=== PATIENT | female | born 1985 | race African-American/Black ===

== ENCOUNTER → 2020-05-25 | Outpatient (CLI) | payer OTHER, MEDICAID ==
[~2020-05-25] MED LIST: ACET-2708 PO; CEFAZOLIN SODIUM 1000MG/VIAL ONE; DEXAMETHASONE 4MG/ML 1ML VIAL ONE; FENTANYL CITRATE/PF 50MCG/ML 2ML VIAL ONE; FLUO20TA29 PO; GLYCOPYRROLATE 0.2 MG/ML 2ML VIAL ONE; LIDOCAINE HCL/PF 1% 10 MG/ML 5ML VIAL ONE; MIDAZOLAM HCL 2 MG/2 ML VIAL ONE; NEOSTIGMINE METHYLSULFATE 1MG/ML 10 ML VIAL ONE; ONDANSETRON HCL 4MG/2ML INJ ONE; PROPOFOL 200MG/20ML VIAL IV ONE; ROCURONIUM BROMIDE 10MG/ML VIAL 5ML IV ONE; SODIUM CHLORIDE 0.9% 10ML VIAL ONE; SUCCINYLCHOLINE CHLORIDE 200MG/10ML IV ONE
== END | disposition home or self-care (01) ==
LOC: LAB 13:16
PROVIDERS: ATTEND Orthopaedic Surgery
DX: Z03.818 Encounter for observation for suspected exposure to other biological agents ruled out (principal)
CPT/HCPCS: C9803; U0003

== ENCOUNTER 2020-05-28 11:16 | Inpatient (IN) | payer OTHER, MEDICAID ==
[~2020-05-28] VITALS: Ht 160 cm; Wt 72.6 kg
[~2020-05-28 11:16] MED LIST changes: -CEFAZOLIN SODIUM 1000MG/VIAL ONE; -DEXAMETHASONE 4MG/ML 1ML VIAL ONE; -FENTANYL CITRATE/PF 50MCG/ML 2ML VIAL ONE; -FLUO20TA29 PO; -GLYCOPYRROLATE 0.2 MG/ML 2ML VIAL ONE; +LACTATED RINGERS 1,000 ML IV SCH; -LIDOCAINE HCL/PF 1% 10 MG/ML 5ML VIAL ONE; -MIDAZOLAM HCL 2 MG/2 ML VIAL ONE; -NEOSTIGMINE METHYLSULFATE 1MG/ML 10 ML VIAL ONE; -ONDANSETRON HCL 4MG/2ML INJ ONE; -PROPOFOL 200MG/20ML VIAL IV ONE; -ROCURONIUM BROMIDE 10MG/ML VIAL 5ML IV ONE; -SODIUM CHLORIDE 0.9% 10ML VIAL ONE; -SUCCINYLCHOLINE CHLORIDE 200MG/10ML IV ONE
[2020-05-28] MEDS ORDERED: FLUO20TA29 PO (12:19)
[2020-05-28] MEDS ORDERED: BUPIVACAINE/EPINEPH/PF 0.25%/0.0005 10ML ONE (12:30)
[2020-05-28] MEDS ORDERED: BUPIVACAINE HCL/PF 0.25% (2.5MG/ML) 10ML ONE ×2 (12:30→12:31)
[2020-05-28] MEDS ORDERED: VANCOMYCIN HCL 1 GM/VIAL ONE (12:31)
[2020-05-28] MEDS ORDERED: BACITRACIN 15GM TUBE TOP ONE (12:31)
[2020-05-28] MEDS ORDERED: BACITRACIN 50,000 UNITS/VIAL ONE (12:31)
[2020-05-28] MEDS ORDERED: ONDANSETRON HCL 4MG/2ML INJ IV PRN ×2 (13:15→14:00)
[2020-05-28] MEDS ORDERED: HYDROCODONE/ACETAMINOPHEN 10/325MG TABLET PO PRN (14:00)
[2020-05-28] MEDS ORDERED: CEFAZOLIN 1000MG PREMIX 50 ML IV SCH (14:00)
[2020-05-28] MEDS ORDERED: ACETAMINOPHEN 325MG TABLET PO PRN (16:00)
[2020-05-28] MEDS ORDERED: DIPHENHYDRAMINE INJ IV PRN (17:13)
[2020-05-28] MEDS ORDERED: MORPHINE PCA 50MG/50ML IV PRN (17:13)
[2020-05-28] MEDS ORDERED: ONDANSETRON INJ IV PRN (17:13)
[2020-05-28] MEDS ORDERED: NALOXONE INJ IV PRN (17:14)
[2020-05-28] MEDS ORDERED: MEPERIDINE HCL/PF 25MG/ML CPJ IV PRN (17:15)
[2020-05-28] MEDS ORDERED: HYDROMORPHONE HCL/PF 2MG/ML CPJ IV PRN (17:15)
[2020-05-28] MEDS: HYDROMORPHONE HCL/PF 2MG/ML CPJ IV PRN ×2 (17:20→17:32)
[2020-05-28 20:00] VITALS: BP 111/71
[2020-05-28 21:00] VITALS: BP 111/71
[2020-05-28] MEDS ORDERED: ZOLPIDEM TARTRATE 5MG TABLET PO PRN (21:00)
[2020-05-28] MEDS: CEFAZOLIN 1000MG PREMIX 50 ML IV SCH (22:47)
[2020-05-29] VITALS: BP 108/81
[2020-05-29] MEDS: KETOROLAC 30MG/ML VIAL IV PRN ×2 (00:05→07:36)
[2020-05-29 04:00] VITALS: BP 102/68
[2020-05-29] MEDS: CEFAZOLIN 1000MG PREMIX 50 ML IV SCH (06:52)
[2020-05-29 08:00] VITALS: BP 114/61
[2020-05-29] MEDS ORDERED: FLUOXETINE HCL 20MG CAPSULE PO SCH (09:00)
[2020-05-29 11:23] VITALS: BP 124/74
[2020-05-29 12:00] VITALS: BP 114/74
== END 2020-05-29 15:01 | disposition home or self-care (01) | DRG 511 ==
LOC: OR 11:16 → 6EST 21:35
PROVIDERS: ADMIT Orthopaedic Surgery; ATTEND Orthopaedic Surgery
PROC: 0PRH0JZ Replacement of Right Radius with Synthetic Substitute, Open Approach (ICD-10-PCS; principal; 2020-05-28)
PROC: 0RBL0ZZ Excision of Right Elbow Joint, Open Approach (ICD-10-PCS; 2020-05-28)
DX: S52.121A Displaced fracture of head of right radius, initial encounter for closed fracture (principal); S42.451A Displaced fracture of lateral condyle of right humerus, initial encounter for closed fracture; M24.021 Loose body in right elbow; M93.921 Osteochondropathy, unspecified, right upper arm; W11.XXXA Fall on and from ladder, initial encounter; Z91.040 Latex allergy status; Z88.2 Allergy status to sulfonamides; Z88.8 Allergy status to other drugs, medicaments and biological substances; Z91.018 Allergy to other foods; Y93.89 Activity, other specified; Y92.89 Other specified places as the place of occurrence of the external cause; Y99.8 Other external cause status
CPT/HCPCS: 73070; 76000; 88311; 97166; J0171; J0330; J0690; J1100; J1170; J1885; J2250; J2270; J2405; J2704; J2710; J3010; J3370; J3490